=== PATIENT | female | born 1980 | race Caucasian/White ===

== ENCOUNTER 2018-05-11 16:01 | Emergency (ER) | payer MEDICAID ==
[~2018-05-11] VITALS: Ht 160 cm; Wt 66.0 kg
[2018-05-11] MEDS ORDERED: IBUPROFEN 600MG TABLET PO ONE (21:00)
[2018-05-12 00:11] VITALS: BP 127/67
== END 2018-05-12 00:12 | disposition home or self-care (01) ==
LOC: ER 16:01
DX: S02.2XXA Fracture of nasal bones, initial encounter for closed fracture (principal); S60.222A Contusion of left hand, initial encounter; G43.909 Migraine, unspecified, not intractable, without status migrainosus; Y04.0XXA Assault by unarmed brawl or fight, initial encounter; Y93.89 Activity, other specified; Y92.89 Other specified places as the place of occurrence of the external cause; Y99.8 Other external cause status
CPT/HCPCS: 70486; 73060; 81025; 99284